=== PATIENT | female | born 1940 | race Caucasian/White ===

== ENCOUNTER → 2017-07-30 | Outpatient (CLI) | payer MEDICARE, BC ==
--- NOTE | 2017-08-02 13:08 | MM ---
Reason for exam: screening (asymptomatic). Last mammogram was performed 1 year and 1 month ago. History: Patient is postmenopausal and has history of other cancer at age 67. Physical Findings: A clinical breast exam by your physician is recommended on an annual basis and results should be correlated with mammographic findings. MG 3D Screening Mammo W/Cad Bilateral CC and MLO view(s) were taken. Prior study comparison: June 26, 2016, bilateral MG 3d screening mammo w/cad. June 25, 2015, bilateral MG screening mammo w CAD. There are scattered fibroglandular densities. Finding: There are typically benign round, linear calcifications in both breasts. There is no discrete abnormality. ASSESSMENT: Benign, BI-RAD 2 RECOMMENDATION: Routine screening mammogram of both breasts in 1 year.
== END | disposition home or self-care (01) ==
LOC: RADMAMWWP 07:06
PROVIDERS: ATTEND Internal Medicine
DX: Z12.31 Encounter for screening mammogram for malignant neoplasm of breast (principal)
CPT/HCPCS: 77063; G0202

== ENCOUNTER → 2018-09-21 | Outpatient (CLI) | payer BC, MEDICARE ==
--- NOTE | 2018-09-21 11:26 | XR ---
EXAMINATION TYPE: XR chest 2V DATE OF EXAM: 09/21/2018 COMPARISON: Chest x-ray October 18, 2017 HISTORY: History of lung cancer with cough for one week. TECHNIQUE: Frontal and lateral views of the chest are obtained. FINDINGS: There is chronic parenchymal change without suspicious new focal air space opacity, pleura l effusion, or pneumothorax seen. There is right apical pleural thickening and suprahilar surgical c lips redemonstrated. Additional clips right hilar region are redemonstrated. The cardiac silhouette s ize is stable and within normal limits. The osseous structures remain demineralized. IMPRESSION: Chronic changes without new suspicious acute pulmonary process. No significant change fr om prior chest x-ray.
== END | disposition home or self-care (01) ==
LOC: RADXRMAIN 11:02
PROVIDERS: ATTEND Internal Medicine
DX: R05 Cough (principal)
CPT/HCPCS: 71046

== ENCOUNTER → 2018-11-17 | Outpatient (CLI) | payer MEDICARE, BC ==
--- NOTE | 2018-11-18 10:30 | MM ---
Reason for exam: screening (asymptomatic). Last mammogram was performed 1 year and 4 months ago. History: Patient is postmenopausal and has history of other cancer at age 67. Physical Findings: A clinical breast exam by your physician is recommended on an annual basis and results should be correlated with mammographic findings. MG 3D Screening Mammo W/Cad Bilateral CC and MLO view(s) were taken. Prior study comparison: July 30, 2017, bilateral MG 3d screening mammo w/cad. June 26, 2016, bilateral MG 3d screening mammo w/cad. The breast tissue is heterogeneously dense. This may lower the sensitivity of mammography. Stable benign calcifications. There is no discrete abnormality. No significant changes when compared with prior studies. ASSESSMENT: Benign, BI-RAD 2 RECOMMENDATION: Routine screening mammogram of both breasts in 1 year.
== END | disposition home or self-care (01) ==
LOC: RADMAMWWP 13:13
PROVIDERS: ATTEND Internal Medicine
DX: Z12.31 Encounter for screening mammogram for malignant neoplasm of breast (principal)
CPT/HCPCS: 77063; 77067

== ENCOUNTER 2019-03-21 08:53 | Day surgery (SDC) | payer MEDICARE, BC ==
[2019-03-16 18:24] VITALS: BMI 27.4
[~2019-03-21 08:53] MED LIST: LACTATED RINGERS 1,000 ML IV SCH
--- NOTE | 2019-03-21 09:36 | P.GSHP ---
History of Present Illness H&P Date: 03/21/19 Chief Complaint: Screening colonoscopy This a 78-year-old female who presents today for screening colonoscopy. Patient denies any significant GI complaints. Past Medical History Past Medical History: Cancer, Eye Disorder, Hyperlipidemia, Hypertension, Osteoarthritis (OA), Thyroid Disorder Additional Past Medical History / Comment(s): LUNG CA 2007. GLAUCOMA. CHRONIC BACK PAIN. POS COLOGUARD. History of Any Multi-Drug Resistant Organisms: None Reported Past Surgical History: Appendectomy, Hysterectomy, Orthopedic Surgery Additional Past Surgical History / Comment(s): LT FOOT. CATARACTS. RUL LOBECTOMY. ANANDA LASER EYES. Past Anesthesia/Blood Transfusion Reactions: No Reported Reaction Additional Past Anesthesia/Blood Transfusion Reaction / Comment(s): CLAUSTROPHOBIA Smoking Status: Current every day smoker - Past Family History Mother Family Medical History: Renal Disease Medications and Allergies Home Medications Medication Instructions Recorded Confirmed Type ALPRAZolam [Xanax] 0.5 mg PO DAILY 03/16/19 03/16/19 History Atorvastatin [Lipitor] 10 mg PO DAILY 03/16/19 03/16/19 History Cholecalciferol (Vitamin D3) 2,000 unit PO DAILY 03/16/19 03/16/19 History [Vitamin D3] HYDROcodone/APAP 10-325MG [[place] 1 tab PO HS 03/16/19 03/21/19 History 10-325] Latanoprost/Pf [Latanoprost 0.005% 1 drop BOTH EYES HS 03/16/19 03/21/19 History Eye Drop] Levothyroxine Sodium [Synthroid] 100 mcg PO DAILY 03/16/19 03/16/19 History Losartan Potassium [Cozaar] 100 mg PO DAILY 03/16/19 03/21/19 History Allergies Allergy/AdvReac Type Severity Reaction Status Date / Time No Known Allergies Allergy Verified 03/16/19 18:02 Surgical - Exam - General well developed, well nourished, no distress - Eyes PERRL - ENT normal pinna - Neck no masses - Respiratory normal expansion - Cardiovascular Rhythm: regular - Abdomen Abdomen: soft, non tender Assessment and Plan Assessment: We'll perform screening colonoscopy.
[2019-03-21 09:37] VITALS: RESP 18; TEMP 98.2
[2019-03-21] MEDS ORDERED: LIDOCAINE 1% 20 ML VIAL (10MG/ML) FOR IV START INTRADERMA ONE (09:39)
[2019-03-21] MEDS ORDERED: PROPOFOL 10 MG/ML 20 ML VIAL IV ONE (09:44)
--- NOTE | 2019-03-21 10:10 | P.OP ---
Date of Procedure: 03/21/19 Preoperative Diagnosis: Screening Colonoscopy Postoperative Diagnosis: Rectal polyp Left colon polyp Diverticulosis Procedure(s) Performed: Colonoscopy Anesthesia: MAC Surgeon: Leonel Edwards Pathology: other (Rectal polyp, left colon polyp) Condition: stable Disposition: PACU Description of Procedure: Patient's placed on the endoscopy table in the lateral position. She received IV sedation. Digital rectal exam was performed which revealed no ebonized. The flexible colonoscope was then placed patient anus and passed throughout the entire colon. The ileocecal valve was visualized secondary tortuosity valve. Scope was brought back the ascending colon appeared normal. The transverse colon appeared normal. In the descending colon there was a polyp seen this removed with a snare. There was diverticulosis of the descending and sigmoid colon in the rectum another polyp seen this removed the forcep. Scope was withdrawn for patient.
[2019-03-21 10:13] VITALS: PULSE 79
[2019-03-21 10:31] VITALS: BP 103/67
== END 2019-03-21 10:43 | disposition home or self-care (01) ==
LOC: ORWHC2ENDO 08:53
PROVIDERS: ATTEND Surgery
DX: Z12.11 Encounter for screening for malignant neoplasm of colon (principal); D12.4 Benign neoplasm of descending colon; K62.1 Rectal polyp; E07.9 Disorder of thyroid, unspecified; E78.5 Hyperlipidemia, unspecified; F17.200 Nicotine dependence, unspecified, uncomplicated; H40.9 Unspecified glaucoma; I10 Essential (primary) hypertension; M19.90 Unspecified osteoarthritis, unspecified site; Z85.118 Personal history of other malignant neoplasm of bronchus and lung; Z79.890 Hormone replacement therapy; Z79.891 Long term (current) use of opiate analgesic; Z79.899 Other long term (current) drug therapy; Z98.49 Cataract extraction status, unspecified eye
CPT/HCPCS: 88305; 45380; 45385; J2704

== ENCOUNTER → 2019-11-20 | Outpatient (CLI) | payer MEDICARE, BC ==
--- NOTE | 2019-11-20 11:16 | XR ---
EXAMINATION TYPE: XR cervical spine 3 views, XR lumbar spine 2 or 3V DATE OF EXAM: 11/20/2019 COMPARISON: NONE HISTORY: 79-year-old female with chronic neck and lower back pain, M99.03, M99.07 FINDINGS: Cervical spine: No predental space widening or prevertebral soft tissue swelling. Moderate dissection. Degenerative c hanges present from C5 through C7 levels. Alignment is maintained. Uncovertebral joint and facet arth ropathy in the mid to lower cervical spine. Normal odontoid view. Lumbar spine: 5 lumbar type vertebral bodies. Mild to moderate multilevel degenerative disc disease with disc heigh t narrowing. Facet arthropathy throughout with trace grade 1 anterolisthesis at C4-C5. Baastrup's dis ease mid lumbar spine. Vertebral body heights are preserved. Atherosclerotic calcifications throughou t the abdominal aorta with possible fusiform aneurysms measuring up to 3.4 cm. IMPRESSION: 1. Cervical spine: Moderate spondylotic change particularly from C5 through C7 levels. No malalignmen t or prevertebral soft tissue swelling. 2. Lumbar spine: [id number] degenerative disc disease throughout. Facet arthropathy throughout with trace grade 1 anterolisthesis at C4-C5. Baastrup's disease mid lumbar spine. No vertebral compre ssion collapse. Possible AAA at 3.4 cm.
== END | disposition home or self-care (01) ==
LOC: RADXRMAIN 10:30
PROVIDERS: ATTEND Chiropractor
DX: M43.16 Spondylolisthesis, lumbar region (principal); M51.36 Other intervertebral disc degeneration, lumbar region; M46.96 Unspecified inflammatory spondylopathy, lumbar region; M48.26 Kissing spine, lumbar region; M47.812 Spondylosis without myelopathy or radiculopathy, cervical region
CPT/HCPCS: 72040; 72100

== ENCOUNTER → 2019-11-20 | Outpatient (CLI) | payer MEDICARE, BC ==
--- NOTE | 2019-11-21 09:23 | MM ---
Reason for exam: screening (asymptomatic). Last mammogram was performed 1 year ago. History: Patient is postmenopausal and has history of other cancer at age 67. Physical Findings: A clinical breast exam by your physician is recommended on an annual basis and results should be correlated with mammographic findings. MG 3D Screening Mammo W/Cad Bilateral CC and MLO view(s) were taken. Prior study comparison: November 17, 2018, bilateral MG 3d screening mammo w/cad. July 30, 2017, bilateral MG 3d screening mammo w/cad. There are scattered fibroglandular densities. Benign appearing bilateral calcifications. No suspicious abnormality. No significant changes when compared with prior studies. ASSESSMENT: Benign, BI-RAD 2 RECOMMENDATION: Routine screening mammogram of both breasts in 1 year.
== END | disposition home or self-care (01) ==
LOC: RADMAMWWP 11:12
PROVIDERS: ATTEND Internal Medicine
DX: Z12.31 Encounter for screening mammogram for malignant neoplasm of breast (principal)
CPT/HCPCS: 77063; 77067

== ENCOUNTER → 2020-07-19 | Outpatient (CLI) | payer MEDICARE, BC ==
--- NOTE | 2020-07-19 12:22 | US ---
EXAMINATION TYPE: US abdomen complete DATE OF EXAM: 07/19/2020 COMPARISON: 08/21/2013 CLINICAL HISTORY: 80-year-old female R10.84 Generalized abdominal pain. Intermittent abdomen pain and N/V/D x 6 months TECHNIQUE: Multiple sonographic images of the abdomen are obtained. FINDINGS: EXAM MEASUREMENTS: Liver Length: 13.9 cm Gallbladder Wall: 0.1 cm CBD: 0.6 cm Spleen: 9.4 cm Right Kidney: 9.6 x 4.8 x 4.4 cm Left Kidney: 10.1 x 5.2 x 4.4 cm Pancreas: visualized portions wnl, duct seen measuring 0.3cm, upper limits of normal in caliber Liver: wnl Gallbladder: wnl Evidence for sonographic Aguilar's sign: yes CBD: borderline dilated Spleen: visualized portions wnl, limited by overlying bowel gas Right Kidney: wnl Left Kidney: 3.9 x 2.7 x 2.4cm hypoechoic area lateral mid pole. This measured 3.2 x 2.2 x 2.1 cm on 2012. A cyst is suspected with internal echoes representing debris or artifact. Six-month follow- up recommended. Upper IVC: wnl Abd Aorta: mid portion measures 2.7cm, mildly ectatic. IMPRESSION: 1. A 3.9 x 2.7 cm hypoechoic lesion within the left renal midpole. A cyst with internal debris or art ifact is suspected rather than a solid mass especially given its indolent behavior; this lesion measu red 3.2 x 2.2 cm back in 2013. Six-month follow-up recommended to reassess. 2. Sonographic Aguilar sign is reported positive. Findings likely from referred pain. No gallstones or acute cholecystitis seen. If further imaging evaluation of the gallbladder is desired, HIDA scan can be considered.
== END | disposition home or self-care (01) ==
LOC: RADUSWWP 08:46
PROVIDERS: ATTEND Internal Medicine
DX: N28.89 Other specified disorders of kidney and ureter (principal); R93.5 Abnormal findings on diagnostic imaging of other abdominal regions, including retroperitoneum
CPT/HCPCS: 76700

== ENCOUNTER → 2021-06-17 | Outpatient (CLI) | payer MEDICARE, BC ==
--- NOTE | 2021-06-17 18:54 | BD ---
EXAMINATION TYPE: Axial Bone Density DATE OF EXAM: 06/17/2021 COMPARISON: 06/25/2015 CLINICAL HISTORY: Postmenopausal screening Height: 63.2 IN Weight: 163 LBS FRAX RISK QUESTIONS: History of Fracture in Adulthood: RT FOOT AGE 71 Secondary Osteoporosis: 2. Hyperthyroidism: YES 3. Menopause before 45: PARTIAL HYST AGE 32 Current Tobacco Use: YES RISK FACTORS HISTORY OF: Active: YES Postmenopausal woman: PARTIAL HYST AGE 32 Take estrogen and/or progesterone medications: TOOK FOR 2 YEARS A LONG TIME AGO Lost more than 2 inches in height since high school: YES MEDICATIONS: Thyroid Medications: YES Which medication: Synthroid How Lon YEARS Additional Medications: VIT D, MULTI VITAMIN, SYNTHROID, HIGH BLOOD PRESSURE MEDS, CHOLESTEROL MEDS, XANAX, PAIN PILL Additional History: LUNG CANCER EXAM MEASUREMENTS: Bone mineral densitometry was performed using the [employer] System. Bone mineral density as measured about the Lumbar spine is: ----- L1-L4(G/cm2): 1.084 T Score Values are as follows: ----- L2: -1.9 ----- L3: -0.5 ----- L4: 0.2 ----- L1-L4: -0.8 Bone mineral density has: Increased 1.8% since study of: 06/25/2015 Bone mineral density about the R hip (g/cm2): 0.734 Bone mineral density about the L hip (g/cm2): 0.789 T Score values are as follows: -----R Neck: -2.2 -----L Neck: -1.8 -----R Total: -0.9 -----L Total: -1.0 Bone mineral density has: Decreased -3.8% since study of: 06/25/2015 IMPRESSION: Osteopenia (T Score between -2.5 and -1). There is slightly increased risk of fracture and the patient may be considered for treatment. Re-Screen 2-5 years. NOTE: T-SCORE=SD OF THE YOUNG ADULT MEAN.
== END | disposition home or self-care (01) ==
LOC: RADMAMWWP 09:26
PROVIDERS: ATTEND Internal Medicine
DX: Z12.31 Encounter for screening mammogram for malignant neoplasm of breast (principal); M85.80 Other specified disorders of bone density and structure, unspecified site
CPT/HCPCS: 77063; 77067; 77080

== ENCOUNTER → 2021-09-08 | Outpatient (CLI) | payer MEDICARE, BC ==
--- NOTE | 2021-09-09 05:07 | XR ---
EXAMINATION TYPE: XR chest 2V DATE OF EXAM: 09/08/2021 COMPARISON: 10/01/2018 HISTORY: 81-year-old female with cough TECHNIQUE: Frontal and lateral views FINDINGS: Heart normal size. Aorta within normal limits. Some surgical clips are noted at the right hilum and m edial right apex. There is some mild patchy density at the medial right base that likely in part refl ects epicardial fat pad. Hyperinflation. No pleural effusion. IMPRESSION: 1. Postsurgical changes right hilum and medial right apex. 2. Mild patchy density medial right base in part reflects epicardial fat pad. Some adjacent atelectas is or early developing infiltrate not excluded at this time.
== END | disposition home or self-care (01) ==
LOC: RADXRMAIN 16:48
PROVIDERS: ATTEND Internal Medicine
DX: R05.9 Cough, unspecified (principal)
CPT/HCPCS: 71046

== ENCOUNTER → 2022-08-20 | Outpatient (CLI) | payer MEDICARE ==
--- NOTE | 2022-08-21 17:36 | MM ---
Reason for Exam: Screening (asymptomatic). Last mammogram was performed 1 year(s) and 2 month(s) ago. Patient History: Menarche at age 13. First Full-Term at age 22. Right ovary removed at age 33. Hysterectomy at age 33. Postmenopausal. Other cancer, age 67. Risk Values: Gabriela 5 year model risk: 1.4%. NCI Lifetime model risk: 2.1%. Prior Study Comparison: 11/17/2018 Bilateral Screening Mammogram, [facility]. 11/20/2019 Bilateral Screening Mammogram, [facility]. 06/17/2021 Bilateral Screening Mammogram, [facility]. Tissue Density: There are scattered fibroglandular densities. Findings: Analyzed By CAD. Benign round calcifications are within the left breast appear stable. Couple of benign round calcifications are within the right breast. No suspicious groups of microcalcifications, spiculated or lobular masses, architectural distortion or other secondary signs of malignancy are mammographically apparent. Overall Assessment: Benign, BI-RAD 2 Management: Screening Mammogram of both breasts in 1 year. A negative mammogram report should not preclude additional follow up of suspicious palpable abnormalities. Patient should continue monthly self breast exam. A clinical breast exam by your physician is recommended on an annual basis and results should be correlated with mammographic findings. Electronically signed and approved by: Ant Chavez D.O. Radiologis
== END | disposition home or self-care (01) ==
LOC: RADMAMWWP 10:44
PROVIDERS: ATTEND Internal Medicine
DX: Z12.31 Encounter for screening mammogram for malignant neoplasm of breast (principal)
CPT/HCPCS: 77063; 77067

== ENCOUNTER → 2023-04-05 | Outpatient (CLI) | payer MEDICARE ==
--- NOTE | 2023-04-06 09:23 | XR ---
EXAMINATION TYPE: XR chest 2V DATE OF EXAM: 04/05/2023 COMPARISON: 09/08/2021 HISTORY: 82-year-old female unspecified cough, R05.9 TECHNIQUE: Frontal and lateral views FINDINGS: Heart normal size. Couple surgical clips right paratracheal region. There is new and increasing opaci ty right perihilar region. Otherwise, no consolidation or pleural effusion. IMPRESSION: Right hilar asymmetry. Recommend further contrast-enhanced CT to exclude lymphadenopathy or mass.
== END | disposition home or self-care (01) ==
LOC: RADXRMAIN 16:56
PROVIDERS: ATTEND Internal Medicine
DX: R05.9 Cough, unspecified (principal)
CPT/HCPCS: 71046

== ENCOUNTER → 2023-04-16 | Outpatient (CLI) | payer MEDICARE ==
--- NOTE | 2023-04-16 14:00 | CT ---
EXAMINATION TYPE: CT chest w con DATE OF EXAM: 04/16/2023 COMPARISON: 11/30/2011 HISTORY: Cough, chest congestion CT DLP: 555 mGycm Automated exposure control for dose reduction was used. CONTRAST: CT scan of the chest is performed with IV Contrast, patient injected with 80 mL of Isovue 300. FINDINGS: LUNGS: Right hilar mass measuring 2.5 x 2.1 x 2.3 cm felt to reflect malignancy until proven otherwis e. Mild adjacent interstitial changes noted which could be related to prior radiation therapy. Surgic al clips are seen about the right hilum and right peritracheal region. MEDIASTINUM: Subcarinal adenopathy measures 1.3 cm. No additional adenopathy greater than 1 cm throug hout the mediastinum or hilum. Thoracic aorta is of normal caliber. The heart is not enlarged. UPPER ABDOMEN: 3.2 cm cyst mid pole left kidney with mural calcification. OTHER: No additional significant abnormality is seen. IMPRESSION: 1. Right hilar mass felt to reflect malignancy until proven otherwise. PET/CT is recommended for furt her evaluation. 2. Enlarged subcarinal lymph node.
== END | disposition home or self-care (01) ==
LOC: RADCTMAIN 12:02
PROVIDERS: ATTEND Internal Medicine
DX: R91.8 Other nonspecific abnormal finding of lung field (principal); R05.9 Cough, unspecified; R59.0 Localized enlarged lymph nodes; Z85.118 Personal history of other malignant neoplasm of bronchus and lung
CPT/HCPCS: 82565; 84520; 71260; 36415; Q9967

== ENCOUNTER → 2023-05-01 | Outpatient (CLI) | payer MEDICARE ==
--- NOTE | 2023-05-01 21:06 | PE ---
EXAMINATION TYPE: PET CT fusion skull to thigh DATE OF EXAM: 05/01/2023 CLINICAL INDICATION:Female, 82 years old with history of R91.8; TECHNIQUE: Following the intravenous administration of 12.3 mCi of F-18 FDG, whole body images are performed from the skull base to the midthigh. Images are reviewed on the computer in the coronal, a xial, and sagittal planes. Reconstructed rotating images are created on independent workstation and reviewed on the computer. A non-contrast CT is performed in conjunction with the PET scan. Glucose level 72 mg/dL COMPARISON: CT 04/16/2023, PET/CT None, FINDINGS: Mediastinal SUV mean is 1.5. Hepatic parenchyma SUV mean is 2.5. SKULL BASE AND NECK: No suspicious radiotracer activity. CHEST, MEDIASTINUM, AND HILAR REGION: * Right lung nodule measuring 27 x 25 mm and max SUV 18.2. * Subcarinal lymph node measuring 13 mm short axis max SUV 12.4 * Groundglass opacities measuring 17 mm and posteriorly measuring 13 mm. These do not demonstrate in creased FDG activity at this time. ABDOMEN AND PELVIS: No suspicious radiotracer activity. OSSEOUS STRUCTURES: No suspicious radiotracer activity. OTHER CT: Atherosclerosis of the carotid bifurcations. Coronary artery calcifications are present. Fu siform dilation of the abdominal aorta infrarenal aorta measuring up to 3.5 cm previously 2.4 cm. Sca ttered colonic diverticula. Left ovarian cyst measuring up to 3.6 x 2.8 cm. No increased metabolic ac tivity. Calcification within the right ovary. Left renal cyst with peripheral calcifications measurin g up to 2.6 cm. IMPRESSION: 1. Points compatible with right lower lung primary malignancy with metastatic disease at least the l east subcarinal lymph node. No other CT evident lymph nodes visualized. Additional groundglass opacit ies are seen within the superior segment right lower lobe. 2. Groundglass opacities within the right lower lobe superior segment, attention follow-up imaging. 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 3. Infrarenal fusiform abdominal aortic aneurysm measuring up to 3.5 cm increased from 2013 [address] ly 2.4 cm 4. Left ovarian cyst measuring up to 3.6 x 2.8 cm. No increased metabolic activity. Consider surveil micha with ultrasound. 5. Left renal cyst with peripheral calcifications measuring up to 2.7 cm. Stable back to 2013.
== END | disposition home or self-care (01) ==
LOC: RADPETMAIN 11:49
PROVIDERS: ATTEND Internal Medicine Critical Care Medicine
DX: N83.202 Unspecified ovarian cyst, left side (principal); N28.1 Cyst of kidney, acquired; I71.43 Infrarenal abdominal aortic aneurysm, without rupture; R91.8 Other nonspecific abnormal finding of lung field
CPT/HCPCS: 78815; A9552

== ENCOUNTER 2023-05-06 10:58 | Day surgery (SDC) | payer MEDICARE ==
[2023-05-06] MEDS ORDERED: LACTATED RINGERS 1,000 ML IV ONE (11:53)
[2023-05-06] MEDS ORDERED: LACTATED RINGERS 1,000 ML IV SCH (11:54)
[2023-05-06 12:09] VITALS: TEMP 97
[2023-05-06] MEDS ORDERED: ONDANSETRON 4 MG/2 ML VIAL ONE (12:12)
[2023-05-06 12:29] LABS: Glucose,Whole Blood 87 mg/dL (70-110)
--- NOTE | 2023-05-06 13:00 | CT ---
EXAMINATION TYPE: CT chest wo con DATE OF EXAM: 05/06/2023 COMPARISON: 04/16/2023 HISTORY: pre-op bronch CT DLP: 257.[address] of the chest was performed with lung and mediastinal window settings submitted. The la ck of contrast limits evaluation of the vascular, mediastinal and parenchymal structures including th e upper abdomen. LUNGS: Right hilar mass measuring 2.5 x 2.1 x 2.3 cm. Postsurgical changes about the right hilum and right peritracheal region. MEDIASTINUM/MELISA: Thoracic aorta is of normal caliber with limited evaluation given lack of contrast . The heart is not enlarged. Subcarinal adenopathy as seen previously. UPPER ABDOMEN: No significant abnormality is seen. OTHER: No significant other abnormality. IMPRESSION: 1. Right hilar mass felt to reflect malignancy until proven otherwise.
[2023-05-06] MEDS ORDERED: PROPOFOL 10 MG/ML 20 ML VIAL IV ONE (13:53)
[2023-05-06] MEDS ORDERED: ROCURONIUM 10 MG/ML (5 ML VIAL) IV ONE (13:53)
[2023-05-06] MEDS ORDERED: GLYCOPYRROLATE 0.2 MG/ML 2 ML VIAL ONE (13:53)
[2023-05-06] MEDS ORDERED: LIDOCAINE 2% INJ 20 MG/ML (2 ML VIAL) ONE (13:53)
[2023-05-06] MEDS ORDERED: NEOSTIGMINE 1 MG/ML 10 ML VIAL ONE (13:53)
[2023-05-06] MEDS ORDERED: fentaNYL (PF) 50 MCG/ML 2 ML AMP ONE (13:53)
[2023-05-06] MEDS ORDERED: MIDAZOLAM 2 MG/2 ML VIAL ONE (13:53)
[2023-05-06] MEDS ORDERED: SUCCINYLCHOLINE CHLORIDE 200 MG/10 ML VIAL IV ONE (13:53)
[2023-05-06 15:24] VITALS: RESP 16
--- NOTE | 2023-05-06 15:45 | XR ---
EXAMINATION TYPE: XR chest 1V DATE OF EXAM: 05/06/2023 HISTORY: post bronch COMPARISON: 04/05/2023 TECHNIQUE: Single view of the chest is submitted. FINDINGS: Right hilar mass is redemonstrated. No evidence for pneumothorax in a patient who is status post bron choscopy and biopsy. The heart is stable. Mediastinal structures are within normal limits. Degenerative changes are seen of the dorsal spine. IMPRESSION: 1. Right hilar mass is redemonstrated. No evidence for pneumothorax in a patient who is status post bronchoscopy and biopsy.
--- NOTE | 2023-05-06 15:54 | FL ---
EXAMINATION TYPE: FL bronchoscopy DATE OF EXAM: 05/06/2023 COMPARISON: NONE HISTORY: PULMONARY NODULE TECHNIQUE: Fluoroscopy. FINDINGS: R side bronch with multiple BX, 1min 45sec fl time DAP=[id number] IMPRESSION: As Above.
[2023-05-06 16:37] VITALS: BP 133/73; PULSE 68
--- NOTE | 2023-05-06 16:37 | P.PCN ---
Date of Procedure: 05/06/23 Operative Findings: Operative Findings: Preoperative Diagnosis: Right middle lobe mass Mediastinal lymphadenopathy Postoperative Diagnosis: Right middle lobe mass Mediastinal lymphadenopathy Normal right upper lobe stump Procedure(s) Performed: Flexible bronchoscopy Robotic-assisted bronchoscopy and addition to radial ultrasound evaluation of the lung mass Robotic-assisted test monitor needle aspirate, transbronchial biopsies, transbronchial brushing of the right middle lobe mass in addition to a bronchioloalveolar lavage Anesthesia: JASMINAA Surgeon: Irvin Rick Estimated Blood Loss (ml): 0 Pathology: other Condition: stable Disposition: same day Operative Findings: A physical exam was performed. Informed consent was obtained from the patient after explaining all the risks (pneumothorax, life threatening bleeding, infection and adverse effects due to medications), benefits and alternatives to the procedure which the patient appeared to understand and so stated. The patient was connected to the monitoring devices. General anesthesia was induced and the patient was intubated by anesthesia. A final timeout was performed and the procedure confirmed by the attending staff bronchoscopist. The bronchoscope was inserted and the airway examined. Regular airway inspection was done. The right upper lobe stump was within normal limits. The bronchus intermedius, right middle lobe and the right lower lobe and left upper and left lower lobe bronchi were all patent and within normal limits. The bronchoscope was removed after doing a therapeutic airway suctioning and removal of all mucous plugs. The flexible bronchoscope was removed and the robotic bronchoscope was inserted. Registration was completed. I next guided the robotic bronchoscope using the navigation system into the right middle lobe mass . Once in proper position, the bronchoscope was frozen. The radial EBUS probe was placed through the bronchoscope and confirmed abnormal u/s images vs normal lung. A needle was placed through the working channel and under fluoroscopic guidance, we sampled the area thought to have the mass twice. We then used a cloud biopsy pattern with ultrasound confirmation for 4 additional passes with the needle. U/S evaluation was then used to reconfirm location. Forceps were next introduced through working channel and extended the appropriate distance and 3 transbronchial biopsies were performed using fluoroscopic guidance. The u/s probe was then reinserted to confirm location. When confirmed this process was repeated for a total of 6 transbronchial biopsies. A brush was placed through the extendable working channel for 1 pass with fluoroscopic guidance. Endobronchial brushings of the right upper lobe mass was done., 40ml of saline was then instilled into the area of the lesion. The robotic bronchoscope was removed and the airway inspected with a flexible bronchoscope and 10 ml of effluent from the BAL was collected. Following that, the endobronchial ultrasound was inserted. Direct examination of the mesial lymph nodes revealed a more than 3 cm subcarinal station 7 lymph node. The rest of the mediastinal lymph nodes are essentially small and not significant. Using a 22-gauge needle, transbronchial needle aspirate of station 7 subcarinal lymph node was done, a total of 5 passes. The endobronchial ultrasound was removed. Therapeutic airway suctioning was done. The res piratory secretions were suctioned out and any bloody secretions were removed. The patient was extubated and transferred to recovery in stable condition. FINDINGS: 1.The airways were normal and the right upper lobe stump was within normal limits 2 Successful navigation, ultrasonographic identification, and biopsies of right middle lobe and endobronchial ultrasound with transbronchial needle aspirate of station 7 lymph nodes RECOMMENDATIONS: Await pathology and cytology results The referring physician will be alerted to the results when available. The patient was advised to follow up with the referring physician with the biopsy results Patient will be called with results.
== END 2023-05-06 16:39 | disposition home or self-care (01) ==
LOC: ORWHC2ENDO 10:58
PROVIDERS: ATTEND Internal Medicine Critical Care Medicine
DX: C34.2 Malignant neoplasm of middle lobe, bronchus or lung (principal); R59.0 Localized enlarged lymph nodes; I10 Essential (primary) hypertension; E78.5 Hyperlipidemia, unspecified; J44.9 Chronic obstructive pulmonary disease, unspecified; F17.200 Nicotine dependence, unspecified, uncomplicated; E07.9 Disorder of thyroid, unspecified; M19.90 Unspecified osteoarthritis, unspecified site; F41.9 Anxiety disorder, unspecified; Z85.118 Personal history of other malignant neoplasm of bronchus and lung; Z79.1 Long term (current) use of non-steroidal anti-inflammatories (NSAID); Z79.890 Hormone replacement therapy; Z79.52 Long term (current) use of systemic steroids; Z79.899 Other long term (current) drug therapy; Z91.041 Radiographic dye allergy status
CPT/HCPCS: 31627; 88305; 87070; 87205; 71045; 71250; 31628; 31629; 31623; 31624; 31652; J2250; J0330; J2710; J2405; J3010; J2704; J2001; S2900; 31653; 87252

== ENCOUNTER → 2023-05-26 | Outpatient (CLI) | payer MEDICARE ==
[2023-05-26 17:03] LABS: African American GFR (CKD) 74 (>60 ml/min/1.73 sqM); Blood Urea Nitrogen 13 mg/dL (7-17); Non-African American GFR(CKD) 64 (>60 ml/min/1.73 sqM)
--- NOTE | 2023-05-26 17:58 | CT ---
EXAMINATION TYPE: CT brain wo/w con CT DLP: 2229.9 mGycm, Automated exposure control for dose reduction was used. DATE OF EXAM: 05/26/2023 5:48 PM COMPARISON: Pet/CT 6 . CLINICAL INDICATION:Female, 82 years old with history of C34.2;, obs for mets TECHNIQUE: Axial CT images of the brain were obtained with coronal and sagittal reformats created and reviewed. Contrast used:100ml mL of Isovue 300 without and with IV Contrast, Oral contrast used: none. FINDINGS: Extra-axial spaces: No abnormal extra-axial fluid collections. Ventricular system: Within normal limits Cerebral parenchyma: No acute intraparenchymal hemorrhage or mass effect. The lemos-white junction is well differentiated. No abnormal enhancement is seen after the administration of intravenous contras t. Cerebellum: Unremarkable. Mass effect: No evidence of midline shift. Intracranial vasculature: Atherosclerotic calcifications of the intracranial vessels. Soft tissues: Normal. Calvarium/osseous structures: No depressed skull fracture. Paranasal sinuses and mastoid air cells: Clear. Visualized orbits: Bilateral aphakia IMPRESSION: 1. No acute intracranial process. 2. No CT evidence for metastatic disease. Additionally noted MRI with IV contrast is more sensitive exam.
== END | disposition home or self-care (01) ==
LOC: RADCTMAIN 16:22
PROVIDERS: ATTEND Internal Medicine Hematology & Oncology
DX: C34.2 Malignant neoplasm of middle lobe, bronchus or lung (principal)
CPT/HCPCS: 82565; 84520; 70470; 36415; Q9967

== ENCOUNTER → 2023-11-22 | Outpatient (CLI) | payer MEDICARE ==
[2023-11-22 11:10] LABS: African American GFR (CKD) 85 (>60 ml/min/1.73 sqM); Blood Urea Nitrogen 15 mg/dL (7-17); Non-African American GFR(CKD) 74 (>60 ml/min/1.73 sqM)
--- NOTE | 2023-11-25 10:37 | CT ---
EXAMINATION TYPE: CT chest w con CT DLP: 245.6 mGycm, Automated exposure control for dose reduction was used. DATE OF EXAM: 11/22/2023 11:27 AM COMPARISON: CT chest 08/17/2023 . CLINICAL INDICATION:Female, 83 years old with history of C34.2 lung ca; PHH, lung ca TECHNIQUE: Multiple axial images were obtained through the chest. Sagittal and coronal reformats were created for review. Contrast used:100 mL of Isovue 300 with IV Contrast (None if empty) Oral contrast used: (None if empty) FINDINGS: LUNGS/ PLEURA: Right hilar region stellate nodular density which was 11.7 mm is now 12.8 mm (image 27 series 4) and adjacent soft tissue density medially, likely lymph node, measures up to 15 mm (image 28) and was about 9 mm. Additionally, superolateral to this, an area which was groundglass attenuatio n now appears solid and measures 16 x 14 mm. Postop changes with clips in the right hilar and right m ediastinal region. There seems to have been partial pneumonectomy with distortion of the right lung a natomy. Thickened linear areas of scarring/postoperative changes in the right lung extending from the hilum superiorly and posteriorly remains stable. Stable tiny groundglass focus noted image 18 geropsychologist ior right lung. Posterior to this, a groundglass focus with slightly stellate margin measuring about 11.5 x 9.4 mm image 19 shows no significant change. Vague subpleural reticulonodular opacities in the posterior right lung image 24 are grossly stable. Stable appearance of scarring/subsegmental atelect asis in the posterior right lung base. Some vague scattered groundglass opacities in the left upper m ore than lower lobe are grossly stable. Groundglass nodular focus in the inferior left upper lobe milton ge 38 is 7 mm, appears unchanged. No consolidation, pleural effusion or pneumothorax. AIRWAY: Central airways are patent. LOWER NECK: No significant findings. MEDIASTINUM: No gross evidence of adenopathy. HEART: Mild cardiomegaly. Moderate coronary artery calcification and/or stents. No appreciable perica rdial effusion. Stable tiny nodularity in the pericardial fat on the right image 40. VASCULATURE: Mild to moderate atherosclerotic calcifications of the aorta and branches. Ascending ao rta is 2.5 CM, descending is 2.1 CM. Aorta is considered normal in size. No evidence of dissection f lap. Pulmonary trunk measures 2.6 CM. Pulmonary trunk is normal in size. Grossly preserved enhancement of the pulmonary arteries, in the limits of non-CTA exam. Previous right lower lobe pulmonary embolus is no longer seen. SOFT TISSUES/LYMPH NODES: Stable chest soft tissues. No axillary adenopathy. There is again a small t onguelike projection of herniated lung into the right anterior chest wall, as on axial image 30, whic h is stable. UPPER ABDOMEN: Suspect fatty infiltration of the liver. Tiny vague hypodensity suggested in the later al right lobe image 56, appears grossly stable from previous. No obvious hepatic mass. Portal veins a re enhancing. Stable cyst in the mid left kidney with some peripheral calcification. Stable adrenals, mildly thickened without evidence of mass. Mixed plaque in the upper abdominal aorta with a portion of a fusiform infrarenal AAA seen with greatest dimension 3.1 cm, without significant change. This ag ain shows some irregular intraluminal plaque/mural thrombus at its periphery without significant ajit nal stenosis. Plaque also causes mild to moderate narrowing of the proximal celiac artery. MUSCULOSKELETAL: Osseous structures are unchanged. Mild degenerative changes of the spine. No lytic/b lastic lesion visualized. IMPRESSION: 1. Enlarging right hilar soft tissue density/lymph node, and adjacent stellate nodule, and enlarging solid lung nodule just superior, consistent with progression of malignancy/metastatic disease. 2. Additional lung findings and areas of small nodularity remain stable. 3. Previous right lower lobe pulmonary embolus no longer seen. 4. Otherwise stable exam with incidental findings as above. Atherosclerotic disease with partially v isualized AAA as described.
== END | disposition home or self-care (01) ==
LOC: RADCTMAIN 10:39
PROVIDERS: ATTEND Internal Medicine Hematology & Oncology
DX: C34.11 Malignant neoplasm of upper lobe, right bronchus or lung (principal); C34.2 Malignant neoplasm of middle lobe, bronchus or lung; R12 Heartburn; R11.14 Bilious vomiting; J98.4 Other disorders of lung; I71.40 Abdominal aortic aneurysm, without rupture, unspecified; R91.8 Other nonspecific abnormal finding of lung field
CPT/HCPCS: 82565; 84520; 71260; 36415; Q9967

== ENCOUNTER → 2024-01-27 | Outpatient (CLI) | payer MEDICARE ==
[2024-01-27 13:05] LABS: African American GFR (CKD) 79 (>60 ml/min/1.73 sqM); Blood Urea Nitrogen 16 mg/dL (7-17); Non-African American GFR(CKD) 68 (>60 ml/min/1.73 sqM)
--- NOTE | 2024-01-27 14:07 | CT ---
Exam: CT Chest with contrast. Date: 01/27/2024. Comparison: Multiple previous with the most recent from 11/22/2023. History: Follow-up lung cancer. Technique: CT examination of the chest was performed following the intravenous administration of 100 mL of Isovue-370. Coronal and sagittal reformats were performed. CT dose lowering techniques were us ed, to include: automated exposure control, adjustment for patient size, and/or use of iterative andrew nstruction. FINDINGS: Mediastinum and Rachel: Right hilar mass measures 2.8 x 3.0 cm which previously measured 2.1 x 1.5 cm. Subcarinal lymph node measures 1.8 cm in short axis diameter and previously measured 1.1 cm in short axis diameter. Pleural and Pericardial spaces: Trace right pleural effusion. Upper Abdomen: 1.2 cm cystic areas seen within the upper portion of the spleen of indeterminate etiol ogy. There is a rim calcified cyst within the left kidney. Cardiovascular: There is mild vascular calcification throughout the thoracic aorta without evidence o f aneurysmal dilation. Moderate to significant coronary artery calcifications are seen. Pulmonary Artery: There are no central pulmonary arterial abnormalities. The examination was not per formed to evaluate for pulmonary embolism. Lung Parenchyma and Airways: Prior right upper lobectomy. 1.4 cm right lower lobe nodule on series 4 image 18 previously measured 1.2 cm. 1.5 cm nodule in the right lower lobe on series 4 image 23 appea rs not significantly changed. Bones: No fracture or aggressive osseous lesion. IMPRESSION: 1. Progression of disease as above. 2. Additional findings as above.
== END | disposition home or self-care (01) ==
LOC: RADCTMAIN 12:30
PROVIDERS: ATTEND Internal Medicine Hematology & Oncology
DX: J90 Pleural effusion, not elsewhere classified (principal); N28.1 Cyst of kidney, acquired; I25.10 Atherosclerotic heart disease of native coronary artery without angina pectoris; C34.11 Malignant neoplasm of upper lobe, right bronchus or lung; C34.2 Malignant neoplasm of middle lobe, bronchus or lung; E78.5 Hyperlipidemia, unspecified; R91.8 Other nonspecific abnormal finding of lung field; R12 Heartburn; R11.14 Bilious vomiting; Z90.2 Acquired absence of lung [part of]
CPT/HCPCS: 82565; 84520; 71260; 36415; Q9967

== ENCOUNTER → 2024-02-23 | Outpatient (CLI) | payer MEDICARE ==
--- NOTE | 2024-02-23 16:39 | XR ---
EXAMINATION TYPE: XR thoracic spine complete DATE OF EXAM: 02/23/2024 3:45 PM CLINICAL INDICATION:Female, 83 years old with history of M54.6; COMPARISON: 01/27/2024 CT. TECHNIQUE: XR thoracic spine complete views of the spine in Frontal and lateral projections. FINDINGS: There is up to be progression of compression deformity of the thoracic spine vertebrae compared to pr ior CT imaging 01/27/2024. Involving the T6 vertebrae with greater than 50% height loss. There is scat tered multilevel disk space narrowing. There is increased kyphotic alignment of the thoracic vertebra l bodies due to wedge compression deformity of the T6 vertebrae. Scattered osteophyte formation along the anterior and lateral aspects of the vertebral bodies. Neural foramen are patent given limitation s of this exam. Spinal canal appears patent. IMPRESSION: 1. Compression deformity of the midthoracic spine which appears to be worse compared to 01/27/2024. C orrelate with history of back pain. Consider MRI thoracic spine for evaluation for bony edema. 2. Moderate degeneration changes throughout the thoracic spine.
== END | disposition home or self-care (01) ==
LOC: RADXRMAIN 15:10
PROVIDERS: ATTEND Internal Medicine
DX: M47.814 Spondylosis without myelopathy or radiculopathy, thoracic region (principal); G95.29 Other cord compression
CPT/HCPCS: 72072

== ENCOUNTER → 2024-02-25 | Outpatient (CLI) | payer MEDICARE | END | disposition home or self-care (01) | LOC: RADPETMAIN 14:10 | PROVIDERS: ATTEND Internal Medicine Critical Care Medicine | DX: Z53.9 Procedure and treatment not carried out, unspecified reason (principal) ==

== ENCOUNTER → 2024-03-09 | Outpatient (CLI) | payer MEDICARE ==
--- NOTE | 2024-03-09 14:05 | BD ---
EXAMINATION TYPE: Axial Bone Density DATE OF EXAM: 03/09/2024 CLINICAL HISTORY: 83 years old Female. ICD-10 CODE: M85.88 DISORDER OF BONE N95.1 MENOPAUSAL Height: 63.5 Weight: 140 FRAX RISK QUESTIONS: Alcohol (3 or more units per day): no Family History (Parent hip fracture): no Glucocorticoids (More than 3mos): no (Ex: prednisone, prednisolone, methylprednisolone, dexamethasone, and hydrocortisone). History of Fracture in Adulthood: yes Secondary Osteoporosis: 1. Type 1 Diabetes: no 2. Hyperthyroidism: no 3. Menopause before 45: yes 4. Malnutrition: no 5. Chronic liver disease: no Rheumatoid Arthritis: no Current Tobacco Use: yes RISK FACTORS current fx t-spine HISTORY OF: Surgery to Spine/Hip(right/left)/Wrist (right/left): no MEDICATIONS: Thyroid Medications: synthroid How Lon years EXAM MEASUREMENTS: Bone mineral densitometry was performed using the [employer] System. Bone mineral density as measured about the Lumbar spine is: ----- L1-L4(G/cm2): 1.004 T Score Values are as follows: ----- L1: -1.9 ----- L2: -2.3 ----- L3: -1.2 ----- L4: -0.8 ----- L1-L4: -1.5 Z Score Values are as follows: ----- L1: 0.0 ----- L2: -0.4 ----- L3: 0.8 ----- L4: 1.2 ----- L1-L4: Bone mineral density has: decreased -7.4 % since study of: 06.17.2021 Bone mineral density about the R hip (g/cm2): 0.834 Bone mineral density about the L hip (g/cm2): 0.801 T Score values are as follows: -----R Neck: -2.3 -----L Neck: -2.3 -----R Total: -1.4 -----L Total: -1.6 Z Score values are as follows: -----R Neck: 0.0 -----L Neck: 0.0 -----R Total: 0.8 -----L Total: 0.5 Bone mineral density has: decreased -8.0 % since study of: 8.3.2020 FRAX%s: The graph provided illustrates a 26.6 % chance for a major osteoporotic fx and a 12.7% chance for the hips probability for fx in 10 years time. IMPRESSION: Normal (Values between +1 and -1 indicate normal bone mass). Consider repeating this study in 5 year s or sooner if there is some new clinical indication. NOTE: T-SCORE=SD OF THE YOUNG ADULT MEAN.
== END | disposition home or self-care (01) ==
LOC: RADBDWWP 09:52
PROVIDERS: ATTEND Internal Medicine
DX: M85.89 Other specified disorders of bone density and structure, multiple sites (principal); N95.1 Menopausal and female climacteric states
CPT/HCPCS: 77080

== ENCOUNTER → 2024-03-16 | Outpatient (CLI) | payer MEDICARE ==
--- NOTE | 2024-03-18 11:22 | PE ---
EXAMINATION TYPE: PET CT fusion skull to thigh DATE OF EXAM: 03/16/2024 CLINICAL INDICATION:Female, 83 years old with history of C34.2 MALIGNANT NEOPLASM OF MIDDLE LOBE, BRO NCHUS OR LUNG; TECHNIQUE: Following the intravenous administration of 11.34 mCi of F-18 FDG, whole body images are performed from the skull base to the midthigh. Images are reviewed on the computer in the coronal, axial, and sagittal planes. Reconstructed rotating images are created on independent workstation and reviewed on the computer. A non-contrast CT is performed in conjunction with the PET scan. Glucose level 78 mg/dL CT DLP: 290 mGycm, Automated exposure control for dose reduction was used. COMPARISON: CT 01/27/2024, PET/CT 05/01/2023, FINDINGS: Mediastinal SUV mean is 2.0. Hepatic parenchyma SUV mean is 2.9. SKULL BASE AND NECK: No suspicious radiotracer activity. CHEST, MEDIASTINUM, AND HILAR REGION: * Right lung nodule measuring 27 x 25 mm and max SUV 21.9, previously 18.2. * Subcarinal lymph node measuring 13 mm short axis max SUV 21.14, previously 12.4 * Groundglass opacities measuring now more solid with increased metabolic activity max SUV 4.2, * New Groundglass opacity in the anterior left lung max SUV 2.55. ABDOMEN AND PELVIS: No suspicious radiotracer activity. OSSEOUS STRUCTURES: Abnormal uptake within the T6 vertebral body max SUV 6.46 new from prior. At leas t 50% height loss. OTHER CT: Atherosclerosis of the carotid bifurcations. Coronary artery calcifications are present. Fu siform dilation of the abdominal aorta infrarenal aorta is similar to 3.5 cm scattered colonic divert icula. Left ovarian cyst measuring up to 3.6 x 2.8 cm. No increased metabolic activity. Calcification within the right ovary. Left renal cyst with peripheral calcifications measuring up to 2.6 cm. IMPRESSION: 1. Progression of disease with increasing metabolic activity and new solid right upper lung nodule i ncreasing metabolic activity. 2. Compression deformity of the T6 vertebrae with increased metabolic activity. Consider further anabel luation with MRI to rule out pathologic fracture. 3. Infrarenal fusiform abdominal aortic aneurysm measuring up to 3.5 cm increased from 2013 previous ly 2.4 cm 4. Left ovarian cyst measuring up to 3.6 x 2.8 cm. No increased metabolic activity. Consider surveil micha with ultrasound. 5. Left renal cyst with peripheral calcifications measuring up to 2.7 cm. Stable back to 2012.
== END | disposition home or self-care (01) ==
LOC: RADPETMAIN 14:44
PROVIDERS: ATTEND Internal Medicine Hematology & Oncology
DX: C34.2 Malignant neoplasm of middle lobe, bronchus or lung (principal); I71.33 Infrarenal abdominal aortic aneurysm, ruptured; N28.1 Cyst of kidney, acquired; N83.202 Unspecified ovarian cyst, left side; N28.89 Other specified disorders of kidney and ureter; R91.1 Solitary pulmonary nodule; M48.54XA Collapsed vertebra, not elsewhere classified, thoracic region, initial encounter for fracture
CPT/HCPCS: 78815; A9552

== ENCOUNTER → 2024-10-26 | Outpatient (CLI) | payer MEDICARE ==
--- NOTE | 2024-10-28 08:54 | PE ---
EXAMINATION TYPE: PET CT fusion skull to thigh DATE OF EXAM: 10/26/2024 CLINICAL INDICATION:Female, 84 years old with history of C34.2; TECHNIQUE: Following the intravenous administration of 9.4 mCi of F-18 FDG, whole body images are p erformed from the skull base to the midthigh. Images are reviewed on the computer in the coronal, ax ial, and sagittal planes. Reconstructed rotating images are created on independent workstation and r eviewed on the computer. A non-contrast CT is performed in conjunction with the PET scan. Glucose l evel 114 mg/dL CT DLP: 231 mGycm, Automated exposure control for dose reduction was used. COMPARISON: CT None, PET/CT 06/22/2024, MRI: None FINDINGS: Mediastinal SUV mean is 1.9. Hepatic parenchyma SUV mean 2.3 SKULL BASE AND NECK: No suspicious radiotracer activity. CHEST, MEDIASTINUM, AND HILAR REGION: * Right perihilar mass measuring 33 x 31, previously 33 x 20 mm, 33 x 25 mm. Max SUV 10.7 , previous ly 9.5, 21.9. * Subcarinal lymph node hard to measure without IV contrast this exam. Measuring at least 32 x 23, p reviously 29 x 12 mm Max SUV 11.1, previously 8.7, 21.14, 12.4 * Right lower lobe superior segment pulmonary nodule measuring 18 x 14 is similar max SUV 2.4, previ ously 2.8, 4.2. * Groundglass opacity in the anterior left lung max SUV 1.0, previously 1.1, 2.55. * Prevascular space lymph node on the right max SUV 3.8, previously 3.5, 2.7. * Right internal mammary lymph nodes max SUV 1.4, previously 2.2, 2.1. ABDOMEN AND PELVIS: No suspicious radiotracer activity. OSSEOUS STRUCTURES: * uptake within the T6 vertebral body max SUV 2.9, previously 3.7, 6.46 with continued progression o f height loss now up to 50-70% * Uptake within the T4 vertebrae max SUV 2.4, previously 3.2. This has a linear morphology likely fr om compression deformity. OTHER CT: Atherosclerosis of the carotid bifurcations. Coronary artery calcifications are present. Fu siform dilation of the abdominal aorta infrarenal aorta is similar to 3.3 cm scattered colonic divert icula. Left ovarian cyst measuring up to 4.2 x 2.8 cm. No increased metabolic activity. Calcification within the right ovary. Left renal cyst with peripheral calcifications measuring up to 2.6 cm. IMPRESSION: 1. Progression of disease with increased size and FDG activity of the right pulmonary hilum and right subcarinal lesions as well as other scattered lesions described above. Increase in metabolic activit y of the lesions. 2. Compression deformities at T4 and T6 vertebral bodies. 3. Infrarenal fusiform abdominal aortic aneurysm measuring up to 3.5 cm is stable. 4. Stable Left ovarian cyst measuring up to 4.2 x 2.8 cm. No increased metabolic activity. 6. Left renal cyst with peripheral calcifications measuring up to 2.7 cm. Stable back to 2012. [facility], , 10/28/2024 8:52 AM
== END | disposition home or self-care (01) ==
LOC: RADPETMAIN 12:19
PROVIDERS: ATTEND Internal Medicine Hematology & Oncology
DX: I71.40 Abdominal aortic aneurysm, without rupture, unspecified (principal); C34.2 Malignant neoplasm of middle lobe, bronchus or lung; M48.54XA Collapsed vertebra, not elsewhere classified, thoracic region, initial encounter for fracture; N28.1 Cyst of kidney, acquired; N83.202 Unspecified ovarian cyst, left side
CPT/HCPCS: 78815; A9552

== ENCOUNTER 2025-01-19 11:58 | Emergency (ER) | payer MEDICARE ==
--- NOTE | 2025-01-19 12:31 | ED ---
General Adult HPI - General Chief complaint: Fall Stated complaint: fall Time Seen by Provider: 01/19/25 12:08 Source: patient Mode of arrival: wheelchair Limitations: no limitations - History of Present Illness Initial comments: Dictation was produced using appweevr dictation software. please excuse any grammatical, word or spelling errors. Chief Complaint: 70-year-old female presents to the emergency department with rib pain after fall History of Present Illness: Patient 70-year-old female she is undergoing cancer treatment. She states she was using her walker yesterday. States that she tripped her walker went forward and patient fell forward. She states she hit her head on the windowsill. Patient complaining of right rib pain. States that is sharp hurts when she presses the area and takes deep inspiration. The ROS documented in this emergency department record has been reviewed and confirmed by me. Those systems with pertinent positive or negative responses have been documented in the HPI. All other systems are other negative and/or noncontributory. - Related Data Home Medications Medication Instructions Recorded Confirmed ALPRAZolam [Xanax] 0.5 mg PO DAILY 03/16/19 07/10/24 Atorvastatin [Lipitor] 10 mg PO DAILY 03/16/19 07/10/24 Cholecalciferol (Vitamin D3) 2,000 unit PO DAILY 03/16/19 07/10/24 [Vitamin D3] HYDROcodone/APAP 10-325MG [[place] 1 tab PO HS 03/16/19 07/10/24 10-325] Latanoprost/Pf [Latanoprost 0.005% 1 drop BOTH EYES HS 03/16/19 07/10/24 Eye Drop] Losartan Potassium [Cozaar] 100 mg PO DAILY 03/16/19 07/10/24 Levothyroxine Sodium 88 mcg PO DAILY 05/04/23 07/10/24 predniSONE 0 mg PO DIRECTED 05/04/23 07/10/24 Allergies Allergy/AdvReac Type Severity Reaction Status Date / Time No Known Allergies Allergy Verified 01/19/25 12:05 Review of Systems ROS Statement: Those systems with pertinent positive or pertinent negative responses have been documented in the HPI. ROS Other: All systems not noted in ROS Statement are negative. Past Medical History Past Medical History: Cancer, COPD, Eye Disorder, Hyperlipidemia, Hypertension, Osteoarthritis (OA), Thyroid Disorder Additional Past Medical History / Comment(s): LUNG CA 2007.recurrence 03/2023 GLAUCOMA. CHRONIC BACK PAIN. POS COLOGUARD. reacted to PET scan dye. took benadryl. saw Kaela History of Any Multi-Drug Resistant Organisms: None Reported Past Surgical History: Appendectomy, Hysterectomy, Orthopedic Surgery Additional Past Surgical History / Comment(s): LT FOOT. CATARACTS. RUL LOBECTOMY. ANANDA LASER EYES. Past Anesthesia/Blood Transfusion Reactions: No Reported Reaction Additional Past Anesthesia/Blood Transfusion Reaction / Comment(s): CLAUSTROPHOBIA Past Psychological History: Anxiety Smoking Status: Current every day smoker Past Alcohol Use History: None Reported Past Drug Use History: None Reported - Past Family History Mother Family Medical History: Renal Disease Father Family Medical History: Coronary Artery Disease (CAD) General Exam - General Exam Comments Initial Comments: PHYSICAL EXAM: General Impression: Alert and oriented x3, not in acute distress HEENT: Normocephalic atraumatic, extra-ocular movements intact, pupils equal and reactive to light bilaterally, mucous membranes moist. Cardiovascular: Heart regular rate and rhythm Chest: Able to complete full sentences, no retractions, no tachypnea Abdomen: abdomen soft, non-tender, non-distended, no organomegaly Musculoskeletal: Pulses present and equal in all extremities, no peripheral edema Motor: no focal deficits noted Neurological: CN II-XII grossly intact, no focal motor or sensory deficits noted Skin: Intact with no visualized rashes Psych: Normal affect and mood Limitations: no limitations Course Vital Signs 01/19/25 12:02 Temperature 97.6 F Pulse Rate 130 H Respiratory 20 Rate Blood Pressure 118/80 O2 Sat by Pulse 96 Oximetry Medical Decision Making - Medical Decision Making Was pt. sent in by a medical professional or institution (, PA, SEPTIC TANK INSTALLER, urgent care, hospital, or detention...) When possible be specific @ -No Did you speak to anyone other than the patient for history (EMS, parent, family, police, friend...)? What history was obtained from this source @ -No Did you review nursing and triage notes (agree or disagree)? Why? @ -I reviewed and agree with nursing and triage notes Were old charts reviewed (outside hosp., previous admission, EMS record, old EKG, old radiological studies, urgent care reports/EKG's, detention records)? Report findings @ -No old charts were reviewed Differential Diagnosis (chest pain, altered mental status, abdominal pain women, abdominal pain men, vaginal bleeding, musculoskeletal, weakness, fever, dyspnea, syncope, headache, dizziness, GI bleed, back pain, seizure, CVA, palpatations, mental health)? @ -Differential Back Pain: Strain, zoster, cauda equina syndrome, epidural abscess, vertebral osteomyelitis, discitis, fracture, subluxation, disc herniation, DJD, spinal stenosis, dissection, AAA, pancreatitis, peptic ulcer disease, pyelonephritis, kidney stone, this is not meant to be an all-inclusive list. EKG interpreted by me (3pts min.). @ -Above X-rays interpreted by me (1pt min.). @ -None done CT interpreted by me (1pt min.). @ -CT scan of the brain, C-spine and chest without contrast shows no acute traumatic processes. There does appear to be some stable processes in relation to her lung cancer U/S interpreted by me (1pt. min.). @ -None done What testing was considered but not performed or refused? (CT, X-rays, U/S, labs)? Why? @ -None What meds were considered but not given or refused? Why? @ -None Was smoking cessation discussed for >3mins.? @ -No Were there social determinants of health that impacted care today? How? (Homelessness, low income, unemployed, alcoholism, drug addiction, transportation, low edu. Level, literacy, decrease access to med. care, long-term, rehab)? @ -No Was there de-escalation of care discussed even if they declined (Discuss DNR or withdrawal of care, Hospice)? DNR status @ -No What co-morbidities impacted this encounter? (DM, HTN, Smoking, COPD, CAD, Cancer, CVA, ARF, Chemo, Hep., AIDS, mental health diagnosis, sleep apnea, morbid obesity)? @ -Lung cancer Was patient admitted / discharged? Hospital course, mention meds given and route, prescriptions, significant lab abnormalities, going to OR and other pertinent info. @ -84-year-old female suffered mechanical fall. She has history of lung cancer undergoing cancer treatment. Patient describes detailed mechanical mechanism. Vital signs stable. Patient well-appearing at the bedside. CT imaging obtained showing no acute traumatic processes. States that she did strike her head presents mainly for right-sided rib pain. Patient given Lidoderm patch and discharge. Advise follow-up with primary care doctor Did you discuss the management of the patient with other professionals (professionals i.e. , PA, SEPTIC TANK INSTALLER, lab, RT, psych nurse, social media marketing specialist, superintendent menagerie, teacher, employment security officer, housing case manager)? Give summary @ -No Was critical care preformed (if so, how long)? @ -No Undiagnosed new problem with uncertain prognosis? @ -No Drug Therapy requiring intensive monitoring for toxicity (Heparin, Nitro, Insulin, Cardizem)? @ -No Were any procedures done? @ -No Diagnosis/symptom? Acute, or Chronic, or Acute on Chronic? Uncomplicated (without systemic symptoms) or Complicated (systemic symptoms)? @ -Rib contusion Side effects of treatment? @ -No Exacerbation, Progression, or Severe Exacerbation? @ -No Poses a threat to life or bodily function? How? (Chest pain, [place], [place], pneumonia, PE, COPD, DKA, ARF, appy, cholecystitis, CVA, Diverticulitis, Homicidal, Suicidal, threat to staff... and all critical care pts) @ -No Disposition Clinical Impression: Rib contusion Disposition: HOME SELF-CARE Condition: Fair Instructions (If sedation given, give patient instructions): Fall Prevention for Older Adults (ED) Is patient prescribed a controlled substance at d/c from ED?: No Referrals: Rodney Sherwood MD [Primary Care Provider] - 1-2 days Time of Disposition: 13:52
--- NOTE | 2025-01-19 13:16 | CT ---
EXAMINATION TYPE: CT brain cspine wo con CT DLP: 1200 mGycm, Automated exposure control for dose reduction was used. DATE OF EXAM: 01/19/2025 12:56 PM COMPARISON: Multiple PET CT with most recent 10/26/2024. CLINICAL INDICATION:Female, 84 years old with history of mechanical fall, right rib pain; Fall, struc k head on windowsill, pain TECHNIQUE: Brain: Multiple axial CT images of the brain were obtained without IV contrast. Cspine: Axial CT images from the skull base to the inferior aspect of T2 we obtained without intraven ous contrast. Coronal and sagittal reformatted images were also reviewed. FINDINGS: Brain: Extra-axial spaces: No abnormal extra-axial fluid collections. Ventricular system: Within normal limits Cerebral parenchyma: No acute intraparenchymal hemorrhage or mass effect. The lemos-white junction is well differentiated. Scattered hypoattenuating areas are seen within the periventricular white matte r. Cerebellum: Unremarkable. Mass effect: No evidence of midline shift. Intracranial vasculature: Atherosclerotic calcifications of the intracranial vessels. Soft tissues: Normal. Calvarium/osseous structures: No depressed skull fracture. Paranasal sinuses and mastoid air cells: Clear. Visualized orbits: Bilateral aphakia Cervical spine: Fracture: None. Osseous structures: Multilevel degenerative disc disease changes with endplate spurring and disc oste ophyte complex's. Vertebral alignment: Within normal limits. Spinal canal/Neural Foramina: Disc osteophyte complexes at C3-C4, C4-C5, C5-C6, and C6-C7 with at [address] mild spinal canal stenosis. Facet joint uncovertebral joint arthropathy scattered throughout the c ervical spine with varying degrees of neural foraminal stenosis. Neck soft tissues: Prevertebral soft tissues are within normal limits. Other: The airway is patent. Bilateral carotid bulb calcifications. Thyroid gland is atrophic or surg ically absent. Please refer to dedicated CT chest of the same day for findings. IMPRESSION: 1. No acute intracranial process. 2. Nonspecific white matter changes, likely secondary to chronic small vessel ischemic disease. 3. No evidence of cervical spine fracture. 4. Mild multilevel degenerative disc disease. [facility], , 01/19/2025 1:13 PM
--- NOTE | 2025-01-19 13:26 | CT ---
EXAMINATION TYPE: CT chest wo con CT DLP: 172.2 mGycm, Automated exposure control for dose reduction was used. DATE OF EXAM: 01/19/2025 12:56 PM COMPARISON: Multiple PET/CT with most recent 10/26/2024. CLINICAL INDICATION:Female, 84 years old with history of mechanical fall, right rib pain; PHH, Fall, Rt sided rib pain, lung CA TECHNIQUE: Multiple axial images were obtained through the chest without IV contrast. Lack of IV or o ral contrast limits evaluation of solid and hollow organ viscera. . Coronal and sagittal reformats re viewed. FINDINGS: LUNGS/ PLEURA: No pneumothorax. The left lung is clear. Trace right pleural effusion. Postsurgical ch anges of the right upper lung with suture material identified. Increased patchy consolidative opaciti es throughout the right lower lobe with cavitation in the perihilar region inferiorly. Additional sim ilar spiculated nodular opacities within the superior segment of the right lower lobe. AIRWAY: Patent and unremarkable.. HEART: Size within normal limits.Trace anterior pericardial effusion. Moderate coronary artery calcif ications present. MEDIASTINUM: Redemonstration of subcarinal mass measuring grossly 2.4 cm. Evaluation is limited due t o lack of intravenous contrast. This demonstrated FDG activity in prior PET/CT. VASCULATURE: No aortic aneurysm. Atherosclerotic calcification of the aorta is branches. MUSCULOSKELETAL: No aggressive osseous lesion. No acute rib fracture identified. Remote healed right lateral fourth rib fracture. Progression of anterior wedge compression deformities of the T6 and T8 v ertebral bodies. There is approximately 70% height loss at T6 and 40% height loss at T8. There are po sterior disc osteophyte complexes at the T5-T6 level and T7-T8 level. SOFT TISSUES/LYMPH NODES: Unremarkable. LOWER NECK: Please refer to dedicated CT brain C-spine the same day for findings. UPPER ABDOMEN: Cholelithiasis. Redemonstration of an exophytic left renal 2.7 cm cyst with peripheral calcification. IMPRESSION: 1. Redemonstration of patchy consolidative masslike opacities throughout the right lower lobe with ca vitation within the right perihilar region. This probably represents progression of malignancy with p ossible superimposed infectious process. Redemonstration of previously seen FDG avid subcarinal mass. 2. Trace right pleural effusion. 3. Progression of anterior wedge compression deformities of the T6 and T8 vertebral bodies. 4. Cholelithiasis. 5. Stable left renal minimally complex cyst. [facility], , 01/19/2025 1:23 PM
[2025-01-19] MEDS: LIDOCAINE 4% PATCH TOPICAL ONE (14:18)
[2025-01-19 14:26] VITALS: BP 125/85; TEMP 97.9
[2025-01-19 15:02] VITALS: PULSE 20; RESP 130
== END 2025-01-19 14:36 | disposition home or self-care (01) ==
LOC: EC 11:58
DX: S20.219A Contusion of unspecified front wall of thorax, initial encounter (principal); C34.90 Malignant neoplasm of unspecified part of unspecified bronchus or lung; F17.200 Nicotine dependence, unspecified, uncomplicated; W01.10XA Fall on same level from slipping, tripping and stumbling with subsequent striking against unspecified object, initial encounter
CPT/HCPCS: 70450; 71250; 72125; 93005; 99284